=== PATIENT | female | born 1940 | race Caucasian/White ===

== ENCOUNTER 2019-02-01 11:44 | Emergency (ER) | payer BC, MEDICARE ==
[~2019-02-01] VITALS: Ht 175.3 cm; Wt 95.3 kg
[2019-02-01 12:11] VITALS: BP 179/78
--- NOTE | 2019-02-01 13:57 | NUR ---
Patient given ANDERSON wrap & cane with discharge instructions and they have confirmed that they understand the instructions. Patient ambulatory with steady gait.
== END 2019-02-01 13:59 | disposition home or self-care (01) ==
LOC: ED 13:53
DX: S83.91XA Sprain of unspecified site of right knee, initial encounter (principal); S83.92XA Sprain of unspecified site of left knee, initial encounter; Z90.710 Acquired absence of both cervix and uterus; Z90.721 Acquired absence of ovaries, unilateral; W10.9XXA Fall (on) (from) unspecified stairs and steps, initial encounter; Y93.89 Activity, other specified; Y92.89 Other specified places as the place of occurrence of the external cause; Y99.8 Other external cause status
CPT/HCPCS: 99283

== ENCOUNTER → 2020-12-13 | Outpatient (CLI) | payer MEDICARE | END | disposition home or self-care (01) | LOC: STAR 13:09 | PROVIDERS: ATTEND Surgery | DX: Z01.818 Encounter for other preprocedural examination (principal); N63.0 Unspecified lump in unspecified breast; I44.7 Left bundle-branch block, unspecified; Z20.822 Contact with and (suspected) exposure to COVID-19 | CPT/HCPCS: 93005; U0003 ==

== ENCOUNTER 2020-12-18 06:46 | Day surgery (SDC) | payer MEDICARE ==
[~2020-12-18] VITALS: Ht 172.7 cm; Wt 89.0 kg
[2020-12-18] MEDS ORDERED: BUPIVACAINE/PF 0.25% ONE (08:11)
[2020-12-18 08:13] VITALS: BP 150/84
[2020-12-18] MEDS ORDERED: CHLORHEXIDINE 15 ML UDC PO ONE (08:30)
[2020-12-18] MEDS ORDERED: LACTATED RINGERS 1,000 ML IV SCH (08:30)
[2020-12-18] MEDS ORDERED: ISOSULFAN BLUE 10 MG/ML, 5ML IV ONE (09:00)
[2020-12-18] MEDS ORDERED: HALOPERIDOL 5 MG/ML IV PRN (09:30)
[2020-12-18] MEDS ORDERED: hydrALAzine 20 MG/ML, 1ML IV PRN (09:30)
[2020-12-18] MEDS ORDERED: OXYcodone 5 MG/5 ML ORAL.SOL UDC PO PRN (09:30)
[2020-12-18] MEDS ORDERED: DIPHENHYDRAMINE 50 MG/ML, 1ML IVPush PRN (09:30)
[2020-12-18] MEDS ORDERED: HYDROmorphone 1 MG/ML, 1ML INJ IVPush PRN (09:30)
[2020-12-18] MEDS ORDERED: PROMETHAZINE 25 MG/ML, 1ML IVPush PRN (09:30)
[2020-12-18] MEDS ORDERED: MEPERIDINE/PF 25MG/0.5ML IVPush PRN (09:30)
[2020-12-18] MEDS ORDERED: LABETALOL 5MG/ML, 20ML IV PRN (09:30)
[2020-12-18] MEDS ORDERED: PROPOFOL 50 ML ONE (12:11)
[2020-12-18] MEDS ORDERED: FENTANYL PF 250 MCG/5ML ONE (12:11)
[2020-12-18] MEDS ORDERED: DEXAMETHASONE 4 MG/ML, 1ML ONE (12:28)
[2020-12-18] MEDS ORDERED: ONDANSETRON 2MG/ML, 2ML ONE (12:28)
[2020-12-18] MEDS ORDERED: FENTANYL PF 100 MCG/2ML ONE (13:59)
[2020-12-18] MEDS: FENTANYL PF 100 MCG/2ML IV PRN ×2 (14:02→14:06)
[2020-12-18] MEDS ORDERED: OXYcodone 5 MG/5 ML ORAL.SOL UDC ONE (14:10)
== END 2020-12-18 15:25 | disposition home or self-care (01) ==
LOC: OUT 06:46
PROVIDERS: ATTEND Surgery
DX: C50.912 Malignant neoplasm of unspecified site of left female breast (principal); M19.90 Unspecified osteoarthritis, unspecified site; I44.7 Left bundle-branch block, unspecified; F41.9 Anxiety disorder, unspecified; F32.9 Major depressive disorder, single episode, unspecified; Z17.0 Estrogen receptor positive status [ER+]; Z79.899 Other long term (current) drug therapy; Z87.891 Personal history of nicotine dependence; Z88.6 Allergy status to analgesic agent; Z91.018 Allergy to other foods; Z80.3 Family history of malignant neoplasm of breast; Z82.49 Family history of ischemic heart disease and other diseases of the circulatory system; Z84.1 Family history of disorders of kidney and ureter
CPT/HCPCS: 19120; 38525; 38792; 88305; 88307; 88333; A9541; J1100; J2405; J2704; J3010

== ENCOUNTER 2021-01-14 06:44 | Day surgery (SDC) | payer MEDICARE ==
[~2021-01-14] VITALS: Ht 172.7 cm; Wt 89.0 kg
[2021-01-14] MEDS ORDERED: hydrALAzine 20 MG/ML, 1ML IV PRN (07:00)
[2021-01-14] MEDS ORDERED: OXYcodone 5 MG/5 ML ORAL.SOL UDC PO PRN (07:00)
[2021-01-14] MEDS ORDERED: PROMETHAZINE 25 MG/ML, 1ML IVPush PRN (07:00)
[2021-01-14] MEDS ORDERED: ACETAMINOPHEN 325 MG TABLET PO PRN (07:00)
[2021-01-14] MEDS ORDERED: LABETALOL 5MG/ML, 20ML IV PRN (07:00)
[2021-01-14] MEDS ORDERED: HYDROmorphone 1 MG/ML, 1ML INJ IVPush PRN (07:00)
[2021-01-14] MEDS ORDERED: EPHEDRINE 50 MG/ML, 1ML IVPush PRN (07:00)
[2021-01-14] MEDS ORDERED: ONDANSETRON 2MG/ML, 2ML IVPush PRN (07:00)
[2021-01-14] MEDS ORDERED: CHLORHEXIDINE 15 ML UDC ONE (08:14)
[2021-01-14] MEDS ORDERED: PLEASE ENTER HEIGHT AND WEIGHT MC SCH (08:30)
[2021-01-14] MEDS ORDERED: LIDOCAINE-MPF 1%, 2ML INFIL ONE (08:30)
[2021-01-14] MEDS ORDERED: LACTATED RINGERS 1,000 ML IV SCH (08:30)
[2021-01-14] MEDS ORDERED: CHLORHEXIDINE 15 ML UDC PO ONE (08:30)
[2021-01-14 08:37] VITALS: BP 125/79
[2021-01-14] MEDS ORDERED: FENTANYL PF 100 MCG/2ML ONE ×2 (08:54→09:45)
[2021-01-14] MEDS ORDERED: BUPIVACAINE/PF 0.25% ONE (08:57)
[2021-01-14] MEDS ORDERED: ISOSULFAN BLUE 10 MG/ML, 5ML IV ONE (08:57)
[2021-01-14] MEDS ORDERED: DEXAMETHASONE 4 MG/ML, 5ML ONE (09:03)
[2021-01-14] MEDS ORDERED: LIDOCAINE-MPF 2% ,5ML ONE (09:03)
[2021-01-14] MEDS ORDERED: KETOROLAC 30 MG/1 ML ONE (09:03)
[2021-01-14] MEDS ORDERED: PROPOFOL 10 MG/ML, 20ML ONE (09:03)
[2021-01-14] MEDS ORDERED: ONDANSETRON 2MG/ML, 2ML ONE ×3 (09:04)
[2021-01-14] MEDS ORDERED: OXYcodone 5 MG/5 ML ORAL.SOL UDC ONE (09:45)
[2021-01-14] MEDS: FENTANYL PF 100 MCG/2ML IV PRN ×3 (09:46→09:56)
== END 2021-01-14 11:30 | disposition home or self-care (01) ==
LOC: OUT 06:44
PROVIDERS: ATTEND Surgery
DX: C50.912 Malignant neoplasm of unspecified site of left female breast (principal); N62 Hypertrophy of breast; Z79.899 Other long term (current) drug therapy; Z88.8 Allergy status to other drugs, medicaments and biological substances
CPT/HCPCS: 19301; 88307; J1100; J2405; J2704; J3010; J1885